=== PATIENT | female | born 1975 | race African-American/Black ===

== ENCOUNTER → 2016-04-18 | Outpatient (CLI) | payer BC ==
[~2016-04-18] MED LIST: NO HOME MEDICATIONS; PHENERGAN 25 TA25 MG PO; [UNRECOGNIZED DRUG - CODE] PO
== END ==
LOC: COL.RAD 08:19
DX: S73.192A Other sprain of left hip, initial encounter (principal); X58.XXXA Exposure to other specified factors, initial encounter
CPT/HCPCS: A9585; Q9967

== ENCOUNTER → 2017-03-25 | Outpatient (CLI) | payer BC | LOC: MC.RAD 13:57 | DX: N63.31 Unspecified lump in axillary tail of the right breast (principal) ==